=== PATIENT | male | born 1950 | race Caucasian/White ===

== ENCOUNTER → 2019-10-18 10:40 | Outpatient (BNVA) | payer MEDICARE, OTHER, SELFPAY | PROVIDERS: PCP Nurse Practitioner Family; Visit Provider Emergency Medicine | DX: R68.89 Other general symptoms and signs (principal); J06.9 Acute upper respiratory infection, unspecified; R06.2 Wheezing | CPT/HCPCS: 87400; 87635 ==

== ENCOUNTER → 2020-11-30 11:00 | Outpatient (BNVA) | payer MEDICARE, OTHER, SELFPAY | PROVIDERS: PCP Nurse Practitioner Family; Visit Provider Internal Medicine | DX: N18.9 Chronic kidney disease, unspecified (principal) | CPT/HCPCS: 80069; 82310; 83970; 85025 ==

== ENCOUNTER → 2021-04-16 10:50 | Outpatient (BNVA) | payer MEDICARE, OTHER, SELFPAY | PROVIDERS: PCP Nurse Practitioner Family; Visit Provider Internal Medicine | DX: N18.32 Chronic kidney disease, stage 3b (principal) | CPT/HCPCS: 85025 ==

== ENCOUNTER → 2021-04-16 11:03 | Outpatient (BNVA) | payer MEDICARE, OTHER, SELFPAY | PROVIDERS: PCP Nurse Practitioner Family; Visit Provider Internal Medicine | DX: N18.32 Chronic kidney disease, stage 3b (principal) | CPT/HCPCS: 80069; 82306; 82310; 83970 ==